=== PATIENT | female | born 2000 | race Caucasian/White ===

== ENCOUNTER 2018-08-02 11:23 | Emergency (ER) | payer BC ==
[~2018-08-02] VITALS: Ht 162.6 cm; Wt 55.1 kg
[2018-08-02 12:14] LABS: BASO % 0.3 % (0.0-2.0); GRAN # 7.6 (1.4-6.5); GRAN % 79.4 % (42.2-75.2); HEMATOCRIT 39.2 % (35.0-45.0); HEMOGLOBIN 13.3 g/dl (12.0-15.0); LYMPH # 0.9 (1.2-3.4); LYMPH % 9.2 % (20.0-51.0); MEAN CELL VOLUME 91 fl (80.0-95.0); MEAN CORPUSCULAR HEMOGLOBIN 31 pg (26.0-32.0); MEAN CORPUSCULAR HGB CONC 34 g/dl (33.0-37.0); MONO % 10.8 % (1.7-9.3); PLATELET COUNT 196 K/mm3 (130-400); REDCELL DISTRIBUTION WIDTH-CV 11.6 % (11.5-14.5)
[2018-08-02 12:24] LABS: ALBUMIN 4.4 gm/dL (3.5-5.0); BILIRUBIN,TOTAL 0.5 mg/dL (0.0-1.0); CALCIUM 9.6 mg/dL (8.4-10.2); CREATININE, serum 1.09 (0.52-1.25); POTASSIUM 3.8 mmol/L (3.4-5.0); TOTAL PROTEIN 8.4 gm/dL (6.4-8.2)
[2018-08-02 12:37] LABS: C-REACTIVE PROTEIN 19.2 mg/dL (0.0-0.9)
[2018-08-02] MEDS ORDERED: AMOXICILLIN 8751 TAB PO (12:52)
[2018-08-02 13:51] VITALS: BP 92/63; PULSE 86; TEMP 100.5
== END 2018-08-02 14:59 | disposition home or self-care (01) ==
LOC: COL.ER 11:23
PROVIDERS: Physician Assistant
DX: J03.90 Acute tonsillitis, unspecified (principal); Z98.890 Other specified postprocedural states
CPT/HCPCS: J1100; J7030

== ENCOUNTER 2018-08-03 19:46 | Emergency (ER) | payer BC ==
[~2018-08-03] VITALS: Ht 162.6 cm; Wt 54.5 kg
[~2018-08-03 19:46] MED LIST: AMOXICILLIN 8751 TAB PO
[2018-08-03 19:51] VITALS: BP 129/79; PULSE 83; TEMP 98.9
== END 2018-08-03 20:36 | disposition home or self-care (01) ==
LOC: COL.ER 19:46
DX: J02.9 Acute pharyngitis, unspecified (principal)
CPT/HCPCS: J8540